=== PATIENT | male | born 1995 | race Caucasian/White ===

== ENCOUNTER 2017-10-16 04:44 | Emergency (ER) | payer BC ==
[~2017-10-16] VITALS: Ht 177.8 cm; Wt 77.6 kg
[2017-10-16 04:51] VITALS: Ht 177.8 cm; Wt 77.6 kg
[2017-10-16 05:34] LABS: PLATELET COUNT 192 x10^3mcL (130-400)
[2017-10-16 05:35] LABS: BASOPHIL % 9.5 % (0-2)
[2017-10-16 05:39] LABS: CALCIUM 9.5 mg/dL (8.5-10.1); CARBON DIOXIDE 30.2 mmol/L (21-32); CHLORIDE SERUM 103 mmol/L (98-107); CREATININE SERUM 0.9 mg/dL (0.7-1.3); GFR1 > 60 mL/min; GLUCOSE SERUM 107 mg/dL (74-106); POTASSIUM SERUM 3.9 mmol/L (3.5-5.1); SODIUM SERUM 140 mmol/L (136-145)
[2017-10-16 05:41] LABS: AMPHETAMINE QUAL UR NONE DETECTED (NEG <=1000)
[2017-10-16 05:44] LABS: ALBUMIN 3.9 g/dL (3.4-5.0); ALKALINE PHOSPHATASE 93 U/L (46-116); ALT/SGPT 40 U/L (16-63); AST/SGOT 28 U/L (15-37); BILIRUBIN TOTAL 0.4 mg/dL (0.20-1.00)
[2017-10-16 06:36] VITALS: BP 122/63
== END 2017-10-16 06:36 | disposition home or self-care (01) ==
LOC: ED 04:44
PROVIDERS: Emergency Medicine
DX: J06.9 Acute upper respiratory infection, unspecified (principal)
CPT/HCPCS: 36415